=== PATIENT | female | born 1945 | race Caucasian/White ===

== ENCOUNTER 2024-06-18 13:40 | Emergency (ER) | payer MEDICARE, OTHER ==
[~2024-06-18] VITALS: Ht 162.6 cm; Wt 71.4 kg
[~2024-06-18 13:40] MED LIST: ASPI1TAB20 PO; ATOR80TA PO; CHOL200010 PO; CLOP75TA28 PO; DOCU-94 PO; LEVO-849 PO; LEVO125T7 PO; LOSA-533 PO; MET25T PO; METF-1145 PO; METO25TA5 PO; OMEG1CAP36 PO; PROB1CHW27 PO; SIMV20TA20 PO
[2024-06-18 18:40] VITALS: BP 154/74; PULSE 78; RESP 16; O2SAT 97
== END 2024-06-18 19:01 | disposition home or self-care (01) ==
LOC: ER 13:40
DX: S00.81XA Abrasion of other part of head, initial encounter (principal); D68.00 Von Willebrand disease, unspecified; E11.9 Type 2 diabetes mellitus without complications; E78.5 Hyperlipidemia, unspecified; I10 Essential (primary) hypertension; Z79.01 Long term (current) use of anticoagulants; Z79.02 Long term (current) use of antithrombotics/antiplatelets; Z79.82 Long term (current) use of aspirin; Z79.84 Long term (current) use of oral hypoglycemic drugs; Z79.890 Hormone replacement therapy; Z79.899 Other long term (current) drug therapy; Z86.73 Personal history of transient ischemic attack (TIA), and cerebral infarction without residual deficits; Z90.710 Acquired absence of both cervix and uterus; W01.0XXA Fall on same level from slipping, tripping and stumbling without subsequent striking against object, initial encounter; Y93.01 Activity, walking, marching and hiking; Y92.89 Other specified places as the place of occurrence of the external cause; Y99.8 Other external cause status
CPT/HCPCS: 70450

== ENCOUNTER → 2024-07-11 | Outpatient (CLI) | payer MEDICARE, OTHER ==
[2024-07-11 16:14] LABS: Basophils # (auto) 0.1 10 ^3/uL (0-0.2); Eosinophils # (auto) 0.2 10 ^3/uL (0-0.8); Eosinophils % (auto) 3.1 % (0.0-7.0); Hematocrit 40.7 % (36.0-46.0); Hemoglobin 14.1 g/dL (12.2-16.2); Lymphocytes # (auto) 1.3 10 ^3/uL (0.4-5.4); Lymphocytes % (auto) 22.3 % (10.0-50.0); Mean Corpuscular Hemoglobin 31.9 pg (28.0-32.0); Mean Corpuscular Hgb Conc. 34.7 g/dL (32.0-36.0); Mean Corpuscular Volume 91.9 fL (80.0-100.0); Monocytes # (auto) 0.6 10 ^3/uL (0-1.3); Monocytes % (auto) 11.2 % (0.0-12.0); Neutrophils # (auto) 3.6 10 ^3/uL (1.6-8.6); Neutrophils % (auto) 62.4 % (37.0-80.0); Nucleated Red Blood Cells % 0.3 %; Platelet Count (auto) 202 10^3/uL (140-450); Red Blood Cells 4.43 10^6/uL (4.0-5.20); Red Cell Distribution Width 14.5 % (11.8-14.3); White Blood Cell 5.8 10^3/uL (4.4-10.8)
[2024-07-11 16:28] LABS: Alanine Aminotransferase 34 U/L (7-40); Albumin 4.4 g/dL (3.2-4.8); Alkaline Phosphatase 117 U/L (46-116); Anion Gap 6 (5-15); Aspartate Aminotransferase 24 U/L (13-40); BUN/Creatinine Ratio 18.9 (10.0-20.0); Bilirubin, Total 1.4 mg/dL (0.2-1.0); Blood Urea Nitrogen 17 mg/dL (9-23); Calcium 10.1 mg/dL (8.7-10.4); Carbon Dioxide 27 mmol/L (20-31); Chloride 108 mmol/L (98-107); Glucose 115 mg/dL (74-106); Potassium 4.1 mmol/L (3.5-5.1); Sodium 141 mmol/L (136-145); Total Protein 7.3 g/dL (5.7-8.2)
== END | disposition home or self-care (01) ==
LOC: LAB 15:48
PROVIDERS: ATTEND Internal Medicine
DX: I13.0 Hypertensive heart and chronic kidney disease with heart failure and stage 1 through stage 4 chronic kidney disease, or unspecified chronic kidney disease (principal); N18.9 Chronic kidney disease, unspecified; I50.9 Heart failure, unspecified; D63.1 Anemia in chronic kidney disease
CPT/HCPCS: 36415; 80053; 85025

== ENCOUNTER → 2024-08-07 | Outpatient (CLI) | payer MEDICARE, OTHER ==
[2024-08-07 14:40] LABS: Anion Gap 8 (5-15); Carbon Dioxide 26 mmol/L (20-31); Chloride 109 mmol/L (98-107); Sodium 143 mmol/L (136-145)
[2024-08-07 14:41] LABS: Calcium 10.3 mg/dL (8.7-10.4)
[2024-08-07 14:46] LABS: BUN/Creatinine Ratio 16.3 (10.0-20.0); Blood Urea Nitrogen 15 mg/dL (9-23); Glucose 121 mg/dL (74-106)
== END | disposition home or self-care (01) ==
LOC: LAB 13:45
PROVIDERS: ATTEND Internal Medicine
DX: I10 Essential (primary) hypertension (principal)
CPT/HCPCS: 36415; 80048

== ENCOUNTER 2025-05-23 07:04 | Day surgery (SDC) | payer MEDICARE, BC ==
[2025-05-21 11:04] LABS: Hematocrit 39.6 % (36.0-46.0); Hemoglobin 13.7 g/dL (12.2-16.2); Mean Corpuscular Hemoglobin 31.1 pg (28.0-32.0); Mean Corpuscular Volume 90.2 fL (80.0-100.0); Nucleated Red Blood Cells % 0.0 %
[2025-05-21 11:21] LABS: INR 1.06 (0.9-1.15); Partial Thromboplastin Time 26.1 SEC (24.5-34.5); Prothrombin Time 11.2 sec (9.3-11.8)
[2025-05-21 11:43] LABS: Alanine Aminotransferase 32 U/L (7-40); Albumin 4.2 g/dL (3.2-4.8); Alkaline Phosphatase 92 U/L (46-116); Anion Gap 9 (5-15); BUN/Creatinine Ratio 15.8 (10.0-20.0); Bilirubin, Total 1.7 mg/dL (0.2-1.0); Blood Urea Nitrogen 16 mg/dL (9-23); Calcium 9.2 mg/dL (8.7-10.4); Carbon Dioxide 25 mmol/L (20-31); Chloride 108 mmol/L (98-107); Glucose 116 mg/dL (74-106); Potassium 3.7 mmol/L (3.5-5.1); Sodium 142 mmol/L (136-145); Total Protein 7.1 g/dL (5.7-8.2)
[2025-05-23] VITALS (9 sets, daily range): BP systolic 106–145; BP diastolic 50–82; PULSE 53–72; RESP 11–16; TEMP 96.6–97.4; O2SAT 95–100
[~2025-05-23] VITALS: Ht 162.6 cm; Wt 68.9 kg
[~2025-05-23 07:04] MED LIST changes: -DOCU-94 PO; -LEVO-849 PO; -METO25TA5 PO; +MULT-688 PO; +MULT1CHW28 PO; -SIMV20TA20 PO
[2025-05-23] MEDS: IODIXANOL 320MG/ML 100ML BTL IV ONE (10:53)
[2025-05-23] MEDS: ATROPINE SULF 1 MG/10ml SYR ONE (11:43)
[2025-05-23] MEDS: MIDAZOLAM HCL 2MG/2ML 2ml VIAL (1mg/ml) ONE (11:47)
[2025-05-23] MEDS: fentaNYL CITRATE 100 MCG/2 ML VL ONE (11:48)
--- NOTE | 2025-05-23 13:43 | DVHOP2 ---
Operative Report - 2 Report Details Date: 05/23/25 Preop Diagnosis: Coronary artery disease/aortic stenosis Postop Diagnosis: CAD, aortic stenosis, successful PTCA and stenting of the RCA. Surgeon: Boston Del Castillo MD Anesthesiologist: Conscious sedation Anesthesia: Mac, Local Consent: The patient was informed of the risks and benefits of the procedure. These include but are not limited to complications of anesthesia, postoperative infection, incomplete relief of symptoms, recurrence of symptoms, damage to blood vessels, nerves and tendons, deep venous thrombosis, pulmonary embolism and possible need for repeat surgery in the future. Complications: No complications Findings: Aortic stenosis, severe. Severe stenosis of the RCA. Normal left ventricular function. No in stent restenosis of the left coronary system. Patent LAD and circumflex with normal LV function and normal end-diastolic pressures. No pulmonary hypertension noted. Indications for Surgery: Chest pain and shortness of breath. Name of Procedure Performed Right and left heart catheterization. PTCA and stenting of RCA. Intravascular ultrasound evaluation of RCA. Lithotripsy of RCA. Procedure Details Procedure Details: Prior local anesthesia with 2% lidocaine to the right wrist and full informed consent obtained the patient was prepped and draped in usual fashion followed by placement of a six Danish sheath the radial artery through which a multipurpose catheter was used to cannulate left ventricle. A four Danish catheter was then used to cannulate the right and left coronary ostia. A Torin catheter was used for ventriculography and evaluation of aortic stenosis. PTCA and stenting was performed via the right femoral artery given a significant spasm of the right brachial artery. Is proceeded to accommodate a intravascular ultrasound device and a lithotripsy balloon to treat the RCA. Hemodynamics: Aortic blood pressure was 134 over 58 with a mean of 88. Left ventricular pressure was 155 three. There was a 25 mm gradient across the aortic valve. Right atrial pressure was approximately five with a right ventricular pressure of 18 five pulmonary artery pressure was 18/8 with a mean of 13. It capillary wedge pressure was. Cardiac output by the thermodilution technique was calculated at 2.3 L/min. An aortic valve area of 0.55 cm2 was calculated consistent with severe AI. Coronary anatomy: The RCA is a large vessel it is normal in its proximal and mid section. The mid RCA at its distal segment has a 99% in stent restenosis with noted calcification of the vessel. The posterolateral branches and PDA within normal limits. Distal RCA is otherwise normal. Left main is large and normal. Left anterior descending has been stented without in stent restenosis. The LAD and septals are within normal limits. The circumflex is large and normal as well. Ventriculography in the VO projection shows an EF of 70% no wall motion abnormalities. Angioplasty was performed for which a femoral artery was accessed given the tight stenosis in the right antecubital segment of the brachial artery we then placed a JR4 and a Specter wire was used. Given the inability to pass a balloon and a stent we ordered an ultrasound device we placed a Guidezilla into the proximal segment of the RCA and finally into the midportion of the RCA followed by pre dilating with a two 0 balloon and placing a 3-0 by 12 mm lithotripsy balloon. Six treatments were performed. Three at four atmospheres then three at six atmospheres. There was notable improvement however there was still a residual lesion for which we placed a 3-0 by 15 mm Medtronic drug-eluting stent subsequent to performing the intravascular ultrasound evaluation. Impression: Successful PTCA and stenting of the RCA. Severe aortic stenosis with a valve area of 0.55 cm2.. Normal left ventricular and diastolic pressure rest. Normal pulmonary pressures. Recommendations: We will continue with dual antiplatelet therapy. Patient will be referred for TAVR as an outpatient Condition Good Disposition Home Date of Service: May 23, 2025 Billing Provider: BOSTON DEL CASTILLO Sr., MD Cardiology Common Codes: 85200-[id number] INP/OBS CARE(Low) Cardiology Procedure Codes: 51584 -PTCA W/STENT PLACEMENT (Intracoronary lithotripsy with shockwave balloon. Intravascular ultrasound evaluation. PTCA and stenting of RCA.), 60032-WJBN HEART CATH W/INTRA INJ, 57826-P/R & L HEART CATH FOR LVG BOSTON DEL CASTILLO Sr., MD May 23, 2025 13:43
== END 2025-05-23 15:44 | disposition home or self-care (01) ==
LOC: CATH 07:04
PROVIDERS: ATTEND Internal Medicine
DX: I25.10 Atherosclerotic heart disease of native coronary artery without angina pectoris (principal); I35.0 Nonrheumatic aortic (valve) stenosis; R07.89 Other chest pain; Z79.899 Other long term (current) drug therapy
CPT/HCPCS: 36415; 80053; 85025; 85610; 85730; 92972; 92978; 93460; C1725; C1753; C1760; C1761; C1769; C1874; C1887; C1894; C9600; J1644; J2250; J3010; Q9967; 99152

== ENCOUNTER 2025-05-31 12:29 | Outpatient (CLI) | payer MEDICARE, BC ==
[2025-05-31 13:22] LABS: Microalb/Creat Ratio, Urine 164.0
== END 2025-05-31 17:00 | disposition home or self-care (01) ==
LOC: LAB 12:29
PROVIDERS: ATTEND Internal Medicine
DX: E11.69 Type 2 diabetes mellitus with other specified complication (principal)
CPT/HCPCS: 36415; 82043; 82570